=== PATIENT | male | born 1965 | race Caucasian/White ===

== ENCOUNTER 2022-08-20 12:13 | Day surgery (SDC) | payer OTHER ==
[~2022-08-20] VITALS: Ht 175.3 cm; Wt 109.5 kg
[2022-08-20] VITALS (11 sets, daily range): BP systolic 110–140; BP diastolic 62–89; PULSE 56–64; TEMP 98.8
[2022-08-20 13:19] LABS: HEMATOCRIT 43.5 % (42.0-52.0); HEMOGLOBIN 15.2 g/dl (13.5-18.0); MEAN CELL VOLUME 88 fl (80.0-100.0); MEAN CORPUSCULAR HEMOGLOBIN 31 pg (27-31); MEAN CORPUSCULAR HGB CONC 35 g/dl (33.0-37.0); MEAN PLATELET VOLUME 8.1 fl (7.4-10.4); PLATELET COUNT 219 K/mm3 (130-400); RED BLOOD COUNT 4.95 M/mm3 (4.20-5.60); REDCELL DISTRIBUTION WIDTH-CV 12.5 % (11.5-14.5)
[2022-08-20 13:22] LABS: INR 1.1 (0.8-3.0)
[2022-08-20 13:25] LABS: PARTIAL THROMBOPLASTIN TIME 30.8 SECONDS (26.0-37.0)
[2022-08-20 13:31] LABS: CALCIUM 9.3 mg/dL (8.4-10.2); CREATININE, serum 0.98 mg/dL (0.72-1.25); POTASSIUM 3.6 mmol/L (3.5-4.5)
[2022-08-20] MEDS ORDERED: MICARDIS HCT 121 TA1 PO (13:31)
[2022-08-20] MEDS ORDERED: WELLBUTRIN XL300 M1 PO (13:32)
[2022-08-20] MEDS ORDERED: WELLBUTRIN XL150 MG PO (13:32)
[2022-08-20] MEDS ORDERED: TYLENOL 500MG500 MG PO (13:33)
[2022-08-20] MEDS ORDERED: ADVIL200 MG PO (13:34)
[2022-08-20] MEDS ORDERED: NATURAL IRON65 MG PO (13:34)
[2022-08-20] MEDS ORDERED: VITAMIN C500 MG PO (13:34)
[2022-08-20] MEDS ORDERED: MAG-OX 400400 MG/TAB PO (13:35)
--- NOTE | 2022-08-20 14:39 | NUR ---
SEE MERGE FOR ALL MEDICATION ADMINISTRATION TIMES/DOSAGES AND INTRA/POST PROCEDURE SEDATION ASSESSMENTS.
--- NOTE | 2022-08-20 15:08 | NUR ---
Report from MARIE Mejia.Will await patient's arrival.
--- NOTE | 2022-08-20 17:53 | NUR ---
Discharge instructions given to pt.pt verbalizes understanding.Dressing to right radial site observed clean,dry,intact and soft to touch.
--- NOTE | 2022-08-20 17:55 | NUR ---
Report to Sou[facility] Mg.
--- NOTE | 2022-08-20 18:20 | NUR ---
I reviewed dc/fu instructions with pt again. Pt's wrist looks good, no hematoma or evidence of bleeding. cms intact distal. pt escorted to exit via wheelchair, with pt.
== END 2022-08-20 19:32 | disposition home or self-care (01) ==
LOC: COL.CAR 12:13
PROVIDERS: Internal Medicine Interventional Cardiology
DX: R94.39 Abnormal result of other cardiovascular function study (principal); R94.31 Abnormal electrocardiogram [ECG] [EKG]; R07.89 Other chest pain
CPT/HCPCS: C1769; J1644; J2250; J3010; Q9967